=== PATIENT | male | born 1980 | race Caucasian/White ===

== ENCOUNTER 2024-01-29 07:40 | Emergency (ER) | payer OTHER ==
[~2024-01-29] VITALS: Ht 188 cm; Wt 87.0 kg
[~2024-01-29 07:40] MED LIST: DOXYCYCLINE HY100 MG PO
[2024-01-29 08:07] LABS: PH, VENOUS 7.263 (7.31-7.41)
[2024-01-29 08:09] LABS: BASOPHILS 0.8 % (0-2); HEMATOCRIT 38.6 % (35.0-50.0); HEMOGLOBIN 12.8 g/dL (12.0-18.0); MCH 28.8 (27-36); MCHC 33.1 g/dl (30-36); MONOCYTES 9.4 % (0-12); NEUTROPHILS 53.8 % (39-80); PLATELET COUNT 321 K/uL (140-440); RBC 4.44 M/ul (4.3-5.7); RDW 15.7 (10.5-15.0)
[2024-01-29 08:26] LABS: ALBUMIN 3.7 g/dL (3.4-5.0); ALBUMIN/GLOBULIN RATIO 0.76 (1.1-2.4); ANION GAP 15.2 (7-21); BILIRUBIN, TOTAL 0.4 ng/dL (0.2-1.0); BUN/CREATININE RATIO 14.75 (6.0-28.6); CALCIUM 8.2 mg/dL (8.5-10.1); CREATININE, SERUM 1.22 mg/dL (0.70-1.30); POTASSIUM 4.2 mmol/L (3.5-5.1); PROTEIN, TOTAL 8.6 g/dL (6.4-8.2)
[2024-01-29] MEDS ORDERED: NALOXONE 4 MG NASAL SPRAY #2 HOME.PACK NAS ONE (09:30)
[2024-01-29 10:33] LABS: BILIRUBIN, URINE NEGATIVE (negative); BLOOD/HGB, URINE NEGATIVE (Negative); KETONE, URINE NEGATIVE (Negative); LEUK ESTERASE, URINE NEGATIVE (negative); NITRITE, URINE NEGATIVE (negative)
[2024-01-29 10:41] VITALS: BP 121/100
[2024-01-29 10:54] LABS: AMPHETAMINES, URINE POSITIVE (NEGATIVE); BARBITURATES, URINE NEGATIVE (NEGATIVE); BENZODIAZEPINE, URINE NEGATIVE (NEGATIVE); BUPRENORPHINE, URINE NEGATIVE (NEGATIVE); CANNABINOID, URINE POSITIVE (NEGATIVE); COCAINE, URINE NEGATIVE (NEGATIVE); ECSTASY, URINE POSITIVE (NEGATIVE); FENTANYL, URINE POSITIVE (NEGATIVE); METHADONE, URINE NEGATIVE (NEGATIVE); OPIATES, URINE NEGATIVE (NEGATIVE); OXYCODONE, URINE NEGATIVE (NEGATIVE); PHENCYCLIDINE, URINE NEGATIVE (NEGATIVE)
== END 2024-01-29 10:36 | disposition home or self-care (01) ==
LOC: ED 07:40
PROVIDERS: Emergency Medicine
DX: R53.83 Other fatigue (principal)
CPT/HCPCS: 36415; 80053; 80307; 81003; 82803; 85025; 99283; J3490

== ENCOUNTER 2024-08-27 13:05 | Emergency (ER) | payer OTHER ==
[~2024-08-27] VITALS: Ht 188 cm; Wt 94.5 kg
[2024-08-27] MEDS ORDERED: TRIMETHOPRIM/SULFAMETHOXAZOLE 1 EA TAB PO ONE (14:30)
[2024-08-27] MEDS ORDERED: BACTRIM DS TAB1 EACH PO (16:28)
[2024-08-27] MEDS ORDERED: NALOXONE 4 MG NASAL SPRAY #2 HOME.PACK NAS ONE (16:30)
[2024-08-27 16:42] VITALS: BP 122/89
== END 2024-08-27 16:42 | disposition home or self-care (01) ==
LOC: ED 13:05
DX: T40.411A Poisoning by fentanyl or fentanyl analogs, accidental (unintentional), initial encounter (principal); R40.4 Transient alteration of awareness; L03.114 Cellulitis of left upper limb
CPT/HCPCS: 76882; 99284; A9270; J3490

== ENCOUNTER 2024-11-09 07:27 | Emergency (ER) | payer OTHER ==
[~2024-11-09] VITALS: Ht 188 cm; Wt 80.7 kg
[~2024-11-09 07:27] MED LIST changes: +BACTRIM DS TAB1 EACH PO
[2024-11-09] MEDS ORDERED: ONDANSETRON 4 MG TAB ODT SL ONE (08:00)
[2024-11-09] MEDS ORDERED: ONDANSETRON ODT8 MG PO (08:38)
[2024-11-09 08:45] VITALS: BP 132/101
[2024-11-09] MEDS ORDERED: NALOXONE 4 MG NASAL SPRAY #2 HOME.PACK NAS ONE (08:45)
== END 2024-11-09 08:45 | disposition home or self-care (01) ==
LOC: ED 07:27
DX: T40.411A Poisoning by fentanyl or fentanyl analogs, accidental (unintentional), initial encounter (principal); R40.4 Transient alteration of awareness; Z59.00 Homelessness unspecified
CPT/HCPCS: 99284; A9270; J3490

== ENCOUNTER 2025-02-26 18:59 | Emergency (ER) | payer OTHER ==
[~2025-02-26] VITALS: Ht 188 cm; Wt 71.8 kg
[~2025-02-26 18:59] MED LIST changes: +ONDANSETRON ODT8 MG PO
[2025-02-26 19:53] LABS: BASOPHILS 0.6 % (0.2-1.2); HEMATOCRIT 40.6 % (40.1-51.0); HEMOGLOBIN 12.8 g/dL (13.7-17.5); LYMPHOCYTES 33.9 % (21.8-53.1); MCH 27.6 PG (25.7-32.2); MCHC 31.5 g/dL (32.3-36.5); MCV 87.5 fL (79.0-92.2); MONOCYTES 7.5 % (5.3-12.2); NEUTROPHILS 55.8 % (34.0-67.9); PLATELET COUNT 309 K/uL (163-337); RBC 4.64 M/uL (4.63-6.08)
[2025-02-26] MEDS ORDERED: IBUPROFEN 600 MG TAB PO ONE (20:00)
[2025-02-26] MEDS ORDERED: ondansetron HCL 4 MG/2 ML VIAL IV ONE (20:00)
[2025-02-26] MEDS ORDERED: LACTATED RINGER'S 1,000 ML IV ONE (20:00)
[2025-02-26 20:03] LABS: ALBUMIN 3.9 g/dL (3.4-5.0); ALBUMIN/GLOBULIN RATIO 0.83 (1.1-2.4); ANION GAP 7.1 (7-21); BILIRUBIN, TOTAL 0.5 mg/dL (0.2-1.0); BUN/CREATININE RATIO 12.5 (6.0-28.6); CREATININE, SERUM 1.28 mg/dL (0.70-1.30); POTASSIUM 4.1 mmol/L (3.5-5.1); PROTEIN, TOTAL 8.6 g/dL (6.4-8.2)
[2025-02-26 21:00] VITALS: BP 133/109
[2025-02-26] MEDS ORDERED: NALOXONE 4 MG NASAL SPRAY #2 HOME.PACK NAS ONE (21:00)
== END 2025-02-26 21:10 | disposition home or self-care (01) ==
LOC: ED 18:59
PROVIDERS: Family Medicine
DX: T40.2X1A Poisoning by other opioids, accidental (unintentional), initial encounter (principal)
CPT/HCPCS: 36415; 80053; 85025; 96374; 99284-25; A9270; J2405; J3490; J7121